=== PATIENT | male | born 1965 | race African-American/Black ===

== ENCOUNTER 2018-11-07 16:30 | Emergency (ER) | payer OTHER ==
[~2018-11-07] VITALS: Ht 177.8 cm; Wt 79.4 kg
--- NOTE | ~2018-11-07 | EKG ---
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
[2018-11-07 17:13] LABS: HEMATOCRIT 38.9 % (42.0-52.0); HEMOGLOBIN 13.2 gm/dL (14.0-18.0); MCH 31.2 pg (26.0-34.0); MCHC 33.8 g/dL (28.0-37.0); MCV 92.3 fL (80.0-100.0); PLATELET COUNT 235 thou/uL (150-400); RBC 4.22 mil/uL (4.50-6.00); RDW 16.5 % (10.5-14.5); WBC 4.1 thou/uL (4.0-11.0)
[2018-11-07 17:21] LABS: ANION GAP 7 mmol/L (7-16); BUN 16 mg/dL (7-18); CALCIUM 8.7 mg/dL (8.5-10.1); CHLORIDE 103 mmol/L (98-107); CO2 28 mmol/L (21-32); GLUCOSE 92 mg/dL (74-106); POTASSIUM 3.8 mmol/L (3.5-5.1); SODIUM 138 mmol/L (136-145)
[2018-11-07 17:30] LABS: TROPONIN-I <0.06 ng/mL (<0.06)
[2018-11-07 17:48] LABS: ABSOLUTE NEUTROPHILS 2.3 thou/uL (1.4-8.2)
[2018-11-07 17:49] LABS: ANISOCYTOSIS 1+
[2018-11-07 19:49] LABS: AMP/METHAMP Negative (Negative); BARBITURATES Negative (Negative); BENZODIAZEPINES Negative (Negative); COCAINE POSITIVE (Negative); METHADONE Negative (Negative); OPIATES Negative (Negative); PCP POSITIVE (Negative)
[2018-11-07 20:39] VITALS: BP 128/76
== END 2018-11-07 20:40 | disposition home or self-care (01) ==
LOC: ER 16:30
PROVIDERS: Emergency Medicine
DX: F14.10 Cocaine abuse, uncomplicated (principal); F12.10 Cannabis abuse, uncomplicated; I10 Essential (primary) hypertension; F32.9 Major depressive disorder, single episode, unspecified; F41.9 Anxiety disorder, unspecified; Z88.8 Allergy status to other drugs, medicaments and biological substances

== ENCOUNTER 2020-03-03 10:08 | Emergency (ER) | payer OTHER ==
[~2020-03-03] VITALS: Ht 175.3 cm; Wt 79.4 kg
[2020-03-03 10:11] VITALS: BP 137/84
[2020-03-03 11:06] LABS: PROTIME 10.5 Seconds (9.3-11.4)
[2020-03-03 11:08] LABS: AMP/METHAMP Negative (Negative); BARBITURATES Negative (Negative); BENZODIAZEPINES Negative (Negative); COCAINE Negative (Negative); METHADONE Negative (Negative); OPIATES Negative (Negative); PCP Negative (Negative)
[2020-03-03] MEDS ORDERED: HYDROCHLOROTH12.5 M1 PO (11:18)
[2020-03-03] MEDS ORDERED: NORVASC10 MG PO (11:18)
[2020-03-03] MEDS ORDERED: SEROQUEL300 MG PO (11:18)
== END 2020-03-03 11:23 | disposition home or self-care (01) ==
LOC: ER 10:08
PROVIDERS: Emergency Medicine
DX: Z91.14 Patient's other noncompliance with medication regimen (principal); R09.89 Other specified symptoms and signs involving the circulatory and respiratory systems; I10 Essential (primary) hypertension; F17.210 Nicotine dependence, cigarettes, uncomplicated; Z88.8 Allergy status to other drugs, medicaments and biological substances

== ENCOUNTER 2020-03-06 23:13 | Emergency (ER) | payer OTHER ==
[~2020-03-06] VITALS: Ht 175.3 cm; Wt 78.9 kg
[~2020-03-06 23:13] MED LIST: HYDROCHLOROTH12.5 M1 PO; NORVASC10 MG PO; SEROQUEL300 MG PO
[2020-03-06 23:48] LABS: ABSOLUTE NEUTROPHILS 5.1 thou/uL (1.4-8.2); BASOPHILS 0.8 % (0.0-2.0); EOSINOPHILS 0.8 % (0.0-3.0); HEMATOCRIT 47.9 % (42.0-52.0); HEMOGLOBIN 15.8 gm/dL (14.0-18.0); LYMPHOCYTES 15.5 % (24.0-44.0); MCV 93.8 fL (80.0-100.0); MONOCYTES 9.2 % (1.0-8.0); PLATELET COUNT 244 thou/uL (150-400); POLYS 73.7 % (36.0-66.0); RBC 5.11 mil/uL (4.50-6.00); RDW 15.5 % (10.5-14.5); WBC 6.9 thou/uL (4.0-11.0)
[2020-03-07] LABS: APTT 33.5 Seconds (24.5-32.8); PROTIME 16.5 Seconds (9.3-11.4); SALICYLATE < 2.8 mg/dL (2.8-20.0)
[2020-03-07 00:04] LABS: INR 1.6
[2020-03-07 00:07] LABS: ANION GAP 11 mmol/L (7-16); BUN 27 mg/dL (7-18); CALCIUM 8.3 mg/dL (8.5-10.1); CHLORIDE 103 mmol/L (98-107); CO2 24 mmol/L (21-32); CREATININE 1.3 mg/dL (0.7-1.3); GLUCOSE 88 mg/dL (74-106); POTASSIUM 4.2 mmol/L (3.5-5.1); SODIUM 138 mmol/L (136-145)
[2020-03-07 00:17] LABS: ALBUMIN 3.7 g/dL (3.4-5.0); SGOT 30 U/L (15-37); SGPT 26 U/L (30-65); TOTAL BILIRUBIN 0.3 mg/dL (<0.1-1.0); TOTAL PROTEIN 6.8 g/dL (6.4-8.2); TROPONIN-I <0.06 ng/mL (<0.06)
[2020-03-07 01:32] VITALS: BP 121/88
--- NOTE | 2020-03-07 11:55 | EKG ---
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
== END 2020-03-07 01:44 | disposition home or self-care (01) ==
LOC: ER 23:13
PROVIDERS: Emergency Medicine
DX: R07.9 Chest pain, unspecified (principal); F22 Delusional disorders; I10 Essential (primary) hypertension; F17.210 Nicotine dependence, cigarettes, uncomplicated; Z88.6 Allergy status to analgesic agent; Z88.8 Allergy status to other drugs, medicaments and biological substances; Z91.011 Allergy to milk products